=== PATIENT | female | born 1985 | race Caucasian/White ===

== ENCOUNTER 2018-09-02 07:03 | Inpatient (IN) | payer OTHER ==
[~2018-09-02] VITALS: Ht 167.6 cm; Wt 79.4 kg
[2018-09-02 07:22] LABS: Source, Urine Clean Catch
[2018-09-02 07:27] LABS: Bilirubin, Urine Neg (Neg); Blood, Urine 5+ (Neg); Glucose Qualitative, Urine Neg (Neg); Ketones, Urine 1+ (Neg); Leukocyte Esterase, Urine 3+ (Neg); Nitrite, Urine Pos (Neg); Protein, Urine 3+ (Neg); Urobilinogen, Urine NORM (Normal)
[2018-09-02 07:42] LABS: BASOPHILS ABSOLUTE AUTO 0.11 K/mm3 (0.00-0.23); BASOPHILS PERCENT AUTO 1 % (0-2); EOSINOPHILS ABSOLUTE AUTO 0.06 K/mm3 (0.00-0.68); EOSINOPHILS PERCENT AUTO 0 % (0-6); Hematocrit 43.8 % (33.0-51.0); Hemoglobin 15.2 g/dL (11.5-16.0); IMMATURE GRAN ABSOLUTE AUTO 0.06 K/mm3 (0.00-0.10); IMMATURE GRAN PERCENT AUTO 0 % (0-1); LYMPHOCYTES ABSOLUTE AUTO 1.23 K/mm3 (0.84-5.20); LYMPHOCYTES PERCENT AUTO 9 % (21-46); MONOCYTES ABSOLUTE AUTO 0.66 K/mm3 (0.16-1.47); MONOCYTES PERCENT AUTO 5 % (4-13); Mean Corpuscular HGB 33.9 pg (26.0-34.0); Mean Corpuscular HGB Conc 34.7 g/dL (31.5-36.5); Mean Corpuscular Volume 98 fL (80-100); Mean Platelet Volume 11.2 fL (9.1-12.4); NEUTROPHILS ABSOLUTE AUTO 11.44 K/mm3 (1.96-9.15); NEUTROPHILS PERCENT AUTO 84 % (41-73); Platelet Count 120 K/mm3 (150-400); RDW Coefficient Variation 12.1 % (11.7-14.2); RDW Standard Deviation 43.6 fL (35.1-46.3); Red Blood Cell Count 4.49 M/mm3 (3.80-5.20); White Blood Cell Count 13.56 K/mm3 (4.00-11.30)
[2018-09-02 07:50] LABS: Appearance, Urine Hazy (Clear); Color, Urine Yellow (P-Yellow)
[2018-09-02 07:51] LABS: White Blood Cells, Urine TNTC /hpf (0-5)
[2018-09-02 07:52] LABS: Bacteria Many /hpf; Squamous Epithelial Cells Rare /hpf (Few)
[2018-09-02 07:59] LABS: Alanine Aminotransfer (ALT/SGP 53 U/L (12-78); Albumin, Blood 3.6 g/dL (3.4-5.0); Albumin/Globulin Ratio 0.9 (0.8-1.8); Alk Phos 136 U/L (50-136); Anion Gap 11 mmol/L (6-16); Aspartate Aminotrans (AST/SGOT 73 U/L (12-37); Bilirubin, Total 1.4 mg/dL (0.1-1.0); Blood Urea Nitrogen 12 mg/dL (8-24); Bun/Creatinine Ratio 21.4 (12.0-20.0); CO2, Blood 23 mmol/L (21-32); Chloride, Blood 98 mmol/L (98-108); Creatinine, Blood 0.56 mg/dL (0.40-1.00); Globulin, Blood 4.2 g/dL (2.2-4.0); Glomerular Filtration Rate >60 (60-); Glucose, Blood 130 mg/dL (70-99); Sodium, Blood 132 mmol/L (136-145); Total Protein, Blood 7.8 g/dL (6.4-8.2)
--- NOTE | 2018-09-02 09:59 | NUR ---
NOTIFIED DR. OHARA PT'S BP 166/103 AND PT ASYMPTOMATIC. NO NEW ORDERS AT THIS TIME.
--- NOTE | 2018-09-02 15:29 | NUR ---
NOTIFIED DR. OHARA PT'S BP 177/[address] OHARA SAID TO ORDER ONE TIME DOSE OF 10MG IV HYDRALAZINE AND CONTINUE TO MONITOR. NO OTHER NEW ORDERS AT THIS TIME.
--- NOTE | 2018-09-02 17:38 | NUR ---
SHIFT SUMMARY- PT AXO X4. PT C/O HEADACHE AND HAS MILD FEVER OF 99.3. THIS PM. MEDS GIVEN PER EMAR. PT'S BP ELEVATED THIS SHIFT. DR. OHARA NOTIFIED. DR. OHARA ORDERED ONE TIME DOSE OF 10MG IV HYDRALAZINE. DR. OHARA SAID SHE WANTS TO SEE IF PT'S BP IMPROVES AFTER SHE HAS RECIEVED THE 2 BAGS OF LR PER EMAR. SECOND BAG OF LR CURRENTLY INFUSING. MEDS GIVEN PER EMAR. BP 159/104 THIS PM. HR ELEVATED THIS SHIFT. 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 PT DENIES SOB. RESP E/U ON RA. DENIES N/V. INDEPENDENT IN THE ROOM. NO OTHER SIGNIFICANT CHANGES THIS SHIFT.
--- NOTE | 2018-09-03 04:24 | NUR ---
SHIFT SUMMARY PT A/O. AMBULATES IN THE ROOM INDEPENDENTLY. CONTINUES TO HAVE FREQUENCY WITH VOIDING. DENIES ANY PAIN THIS EVENING. SLEPT OFF AND ON THROUGHOUT THE NIGHT. PT COMPLETED SECOND BAG OF LR. BLOOD PRESSURE SLIGHTLY IMPROVED BUT CONTINUES TO BE ELEVATED. HR SLIGHTLY TACHYCARDIC WELL IN THE LOW 110'S. MD AWARE. NO ACUTE CHANGES THIS SHIFT. WILL CONTINUE TO MONITOR AND REPORT TO DAY RN.
[2018-09-03 05:05] LABS: BASOPHILS ABSOLUTE AUTO 0.06 K/mm3 (0.00-0.23); BASOPHILS PERCENT AUTO 1 % (0-2); EOSINOPHILS ABSOLUTE AUTO 0.09 K/mm3 (0.00-0.68); EOSINOPHILS PERCENT AUTO 1 % (0-6); Hematocrit 40.1 % (33.0-51.0); Hemoglobin 13.6 g/dL (11.5-16.0); IMMATURE GRAN ABSOLUTE AUTO 0.03 K/mm3 (0.00-0.10); IMMATURE GRAN PERCENT AUTO 0 % (0-1); LYMPHOCYTES ABSOLUTE AUTO 1.04 K/mm3 (0.84-5.20); LYMPHOCYTES PERCENT AUTO 11 % (21-46); MONOCYTES PERCENT AUTO 6 % (4-13); Mean Corpuscular HGB 33.8 pg (26.0-34.0); Mean Corpuscular HGB Conc 33.9 g/dL (31.5-36.5); Mean Corpuscular Volume 100 fL (80-100); Mean Platelet Volume 11.4 fL (9.1-12.4); NEUTROPHILS PERCENT AUTO 82 % (41-73); Platelet Count 92 K/mm3 (150-400); RDW Coefficient Variation 11.9 % (11.7-14.2); RDW Standard Deviation 43.8 fL (35.1-46.3); Red Blood Cell Count 4.02 M/mm3 (3.80-5.20); White Blood Cell Count 9.82 K/mm3 (4.00-11.30)
[2018-09-03 05:53] LABS: Anion Gap 8 mmol/L (6-16); Blood Urea Nitrogen 5 mg/dL (8-24); Bun/Creatinine Ratio 9.8 (12.0-20.0); CO2, Blood 22 mmol/L (21-32); Calcium, Blood 8.6 mg/dL (8.5-10.1); Chloride, Blood 105 mmol/L (98-108); Creatinine, Blood 0.51 mg/dL (0.40-1.00); Glomerular Filtration Rate >60 (60-); Glucose, Blood 123 mg/dL (70-99); Potassium, Blood 3.7 mmol/L (3.5-5.5); Sodium, Blood 135 mmol/L (136-145)
[2018-09-03] MEDS ORDERED: LISI20 PO (09:50)
[2018-09-03] MEDS ORDERED: LEVO750 PO (09:50)
--- NOTE | 2018-09-03 11:30 | NUR ---
DISCHARGE NOTE PT DISCHARGED TO HOME. PT LEFT ROOM VIA STEADY GAIT AT 1000 WITH RN ESCORT. 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 PT AGREES. IV DC'D AND BELONGINGS RETURNED. ALL QUESTIONS ANSWERED.
== END 2018-09-03 10:45 | disposition home or self-care (01) | DRG 872 ==
LOC: ER 07:03 → MEDS 07:04 → ENPENDDIS 09-03 09:05 → MEDS 09-03 10:45
PROVIDERS: Emergency Medicine; ADMIT Internal Medicine
DX: A41.9 Sepsis, unspecified organism (principal); N10 Acute pyelonephritis; I10 Essential (primary) hypertension; F17.200 Nicotine dependence, unspecified, uncomplicated
CPT/HCPCS: 36415; 80048; 80053; 81001; 81025; 83605; 85025; 87040; 87077; 87086; 87186; 96361; 96365; 99284-25; A9270; G0378; J0360; J0696; J7030; J7120

== ENCOUNTER 2019-02-08 14:19 | Inpatient (IN) | payer SELFPAY ==
[~2019-02-08] VITALS: Ht 160 cm; Wt 79.0 kg
[~2019-02-08 14:19] MED LIST: LEVO750 PO; LISI20 PO
[2019-02-08 14:40] LABS: Calcium, Ionized (POC) 1.06 mmol/L (1.10-1.46); Chloride (POC) 98 mmol/L (98-108); Creatinine (POC) 2.7 mg/dL (0.6-1.0); Glucose (ISTAT POC) 50 mg/dL (70-99); Hemoglobin (POC) 16.3 g/dL (12.0-16.0); Potassium (POC) 5.6 mmol/L (3.5-5.5); Sodium (POC) 132 mmol/L (135-148); Total CO2 (POC) 15 mmol/L (21-32)
[2019-02-08 14:54] LABS: Hematocrit 42.5 % (33.0-51.0); Hemoglobin 13.1 g/dL (11.5-16.0); Mean Corpuscular HGB 34.6 pg (26.0-34.0); Mean Corpuscular HGB Conc 30.8 g/dL (31.5-36.5); Mean Corpuscular Volume 112 fL (80-100); Mean Platelet Volume 12.3 fL (9.1-12.4); NRBC ABSOLUTE 0.48 K/mm3 (0.00-0.02); NRBC Auto 6.1 /100 WBC (0.0-0.2); Platelet Count 57 K/mm3 (150-400); RDW Coefficient Variation 13.9 % (11.7-14.2); RDW Standard Deviation 55.7 fL (35.1-46.3); Red Blood Cell Count 3.79 M/mm3 (3.80-5.20); White Blood Cell Count 7.89 K/mm3 (4.00-11.30)
[2019-02-08 15:12] LABS: Alanine Aminotransfer (ALT/SGP 139 U/L (12-78); Albumin, Blood 2.2 g/dL (3.4-5.0); Albumin/Globulin Ratio 0.8 (0.8-1.8); Alk Phos 126 U/L (50-136); Anion Gap 32 mmol/L (6-16); Aspartate Aminotrans (AST/SGOT 930 U/L (12-37); Bilirubin, Total 1.9 mg/dL (0.1-1.0); Blood Urea Nitrogen 22 mg/dL (8-24); Bun/Creatinine Ratio 9.4 (12.0-20.0); CO2, Blood 18 mmol/L (21-32); Calcium, Blood 9.9 mg/dL (8.5-10.1); Chloride, Blood 91 mmol/L (98-108); Creatinine, Blood 2.34 mg/dL (0.40-1.00); Ethanol (Alcohol), Blood, Med <3 mg/dL; Globulin, Blood 2.8 g/dL (2.2-4.0); Glomerular Filtration Rate 26 (60-); Glucose, Blood 52 mg/dL (70-99); Magnesium, Blood 2.3 mg/dL (1.6-2.4); Potassium, Blood 5.3 mmol/L (3.5-5.5); Sodium, Blood 141 mmol/L (136-145)
[2019-02-08 15:15] LABS: Troponin I 0.057 ng/mL (0.000-0.040)
[2019-02-08 15:24] LABS: PCO2 Arterial 71 mmHg (35-45); pH Blood Arterial 6.92 (7.35-7.45)
[2019-02-08 15:25] LABS: PO2 Arterial 41 mmHg (80-100)
[2019-02-08 15:51] LABS: BAND PERCENT MAN 15 % (0-8); BASOPHILS ABSOLUTE MAN 0.07 K/mm3 (0.00-0.23); BASOPHILS PERCENT MAN 1 % (0-2); EOSINOPHILS PERCENT MAN 0 % (0-6); LYMPHOCYTES ABSOLUTE MAN 4.02 K/mm3 (0.84-5.20); LYMPHOCYTES PERCENT MAN 51 % (21-46); METAMYELOCYTE ABSOLUTE MAN 0.55 K/mm3 (0.00-0.00); METAMYELOCYTE PERCENT MAN 7 % (0-0); MONOCYTES ABSOLUTE MAN 0.31 K/mm3 (0.16-1.47); MONOCYTES PERCENT MAN 4 % (4-13); MYELOCYTE ABSOLUTE MAN 0.23 K/mm3 (0.00-0.00); MYELOCYTE PERCENT MAN 3 % (0-0); NEUTROPHILS ABSOLUTE MAN 2.68 K/mm3 (1.96-9.15); SEG NEUTROPHILS PERCENT MAN 19 % (41-73); TOTAL CELLS COUNTED 100
--- NOTE | 2019-02-08 16:42 | NUR ---
REsponded to ED staff request to be present for the arrival of this pt. Greeted family when they arrived and provided updates. SO, Derek, was quite tearful. Pt and SO have a ten year-old dtr who is also present. Multiple family memebers arrived, including pt's mom. Derek informs me that his mother just last month. Family appreciaitve of prayer and emotional support. I will remain available.
--- NOTE | 2019-02-08 17:25 | NUR ---
ADMISSION NOTE- PT ADMITTED TO ICU FROM ER ON [facility]. UNRESPONSIVE. PUPILS LARGE, REACTIVE. DECEREBRATE POSTURING BOTH ARMS IN RESPONSE TO PAIN. DOES HAVE SOME HEAD BOBBING MOVVMENT. NO RESPONSE TO PAIN EITHER LEG. ORALLY INTUBATED, TUBE SECURE. TOLERATING VENT. LUNGS CLEAR T/O. UNABLE TO OBTAIN SATURATION. SKIN COLD, MOTTLED CHEST, KNEES. TEMP 92.5 CHAVEZ TEMP. OGT CLAMPED. NOSRMAL SINUS 80'S. UNABLE TO OBTAIN BP-DOPPLE BP 70/D LEFT ARM. LEVOPHED GTT AT 20 MCG/MIN, EPINEPHRINE AT 20 MCG/MIN, VASOPRESSIN GTT AT .04 UNITS/MIN AND BICARB GTT AT 50 CC/HR. DR. STRICKLAND AT BEDSIDE, PLACING ARTERIAL LINE. CHAVEZ IN PLACE-NO UO.
--- NOTE | 2019-02-08 17:39 | NUR ---
RIGHT FEMORAL ARTERIAL SITE PLACED BY DR. STRICKLAND WITH GOOD WAVEFORM. SBP 120'S. EPINEPHRINE TO 18 MCG/MIN. T[employer] TEMP NOW 33.6. SATURATION PROBE FOREHEAD WITH READING OF 91%
[2019-02-08 17:53] LABS: PCO2 Arterial 29.8 mmHg (35-45); PO2 Arterial 249 mmHg (80-100)
--- NOTE | 2019-02-08 18:45 | NUR ---
RIJ CENTRAL LINE PLACED BY DR. STRICKLAND, SITE OOZING. PORTABLE CHEST DONE-OKAY TO USE. BEDSIDE ECHO DONE. TITRATING EPI GTT DOWN. TWO AMPS BICARB GIVEN FOR ABG PER DR. STRICKLAND. BLOOD SUGAR 243. FAMILY HERE-UPDATED. BLADDER SCAN DONE-MINIMAL URINE. OGT WITH BLOODY BROWN DRAINAGE.
--- NOTE | 2019-02-08 18:49 | NUR ---
Echocardiogram completed.
[2019-02-08 19:09] LABS: Hematocrit 35.8 % (33.0-51.0); Hemoglobin 10.9 g/dL (11.5-16.0)
--- NOTE | 2019-02-08 19:35 | NUR ---
Present throughout late afternoon with this family. Provided calm presence, gentle dormitory counselor, and prayer. Numerous family arriving. They are tearful, but appropriate. [employer] will remain available.
--- NOTE | 2019-02-08 19:35 | NUR ---
NOW WITH BLOODY RECTAL DRAINAGE-BATH, LINEN CHANGE DONE. RECTAL TUBE PLACED BY DEMARIO ALLEN. HAS SOME TWITCHING MOVEMENTS. DR. STRICKLAND HERE-NEURO ASSESSED. DR. STRICKLAND HAD DISCUSSION WITH FAMILY, IMPLEMENTATION LEAD HERE. FAMILY TEARFUL, IN ROOM TO SEE PT. CRITICAL LAB VALUES GIVEN TO DR. STRICKLAND. STILL WOULD LIKE BLOOD TRANSFUSED. PT'S DAD CONSENTED FOR BLOOD TRANSFUSION. REPORT TO IFEANYI ALLEN
--- NOTE | 2019-02-08 20:07 | NUR ---
[place] of Care: Assumed care of patient at 1900hr, report received from day shift ALEJANDRO Santa. Patient intubated, vent to AC-26/450/5/100%, O2- 100%. No sedation at this time, patient is unresponsive. Doll eyes noted, pupils dilated to 6mm and fixed. Dr. Rashid made aware. Art-line to rt femoral with dressing tegaderm CHG in place with gauze (bleeding on day shift), dressing now c/d/i. Central line to rt IJ patent and intact, infusing Epinephrine, Levophed, Vasopressin, and sodium-bicarb (see-flow sheet). Dressing to rt IJ patent and intact. Epinephrine gtt at 6mcg/min, Levophed at 20mcg/min, systolic BP 80's-90's, MAP- 50's. At shift change received orders per Dr. Clifford to not titrate vasopressing medications up any further, and to maintain current rate. Repeat Lactic acid received at shift change-23.4. Dr. Clifford made aware of and received orders to increase Bicarb gtt from 50ml/hr, to 100ml/hr. Also received orders for 2 units PRBC's, 2 units FFP, and 1 unit Cryo, awaiting unit ready slips from lab at this time. Ambrose cath in place, but no urine output noted. Bladder scan showed only 30ml in bladder. Discussed urine output status with Dr. Dasilva, instructed patient would be getting more volume with blood products and hold additional fluids at this time. ET tube advanced by RT Willis by 1cm, now 23cm at lip, 7.5 tube. Will continue to monitor.
[2019-02-08 20:50] LABS: PCO2 Arterial 27.8 mmHg (35-45); PO2 Arterial 197 mmHg (80-100)
--- NOTE | 2019-02-08 21:37 | NUR ---
Update: Since assumption of care, patient's BP continued to decline, systolic 60's, MAP's 40'S. Instructed by Dr. Dasilva to not start chest compressions until patient show's asystole/or has no pulse. Also instructed to wait until blood products have finished to draw repeat lactic acid. Patient then had x3 episodes of bradycardia, HR decreased to 40's-50's, carodid pulse still palpable. Dr. Dasilva called to room with each episode of bradycardia, he has also been in/out of patient's room throughout shift thus far. During bradycardia, again instructed to not start chest compressions. HR then increased back to 70's-80's, BP remains low. Instructed to continue current treatment r/t vasopressors, fluids. X1 unit Cryo given, then received orders to discontinue previously ordered FFP and RBC's. Several family members to room and at bedside at this time. De-fibb pads and back board remain in place.
--- NOTE | 2019-02-08 22:43 | NUR ---
Update: Dr. Serrano left unit at this time. Instructed by Dr. Clifford to not perform CPR and/or call code blue if indicated, send text message to his phone when patient . Maintaining current treatment of vasopressors and fluids. BP remains low, systolic 50's, MAP 30's, HR- 60's. Family remains at bedside. Will continue to monitor.
--- NOTE | 2019-02-09 00:01 | NUR ---
Comfort Care: Patient's family called this nurse to room. Patient's family asked if the ventilator, and medications are supporting her life at this time, "keeping her alive". This nurse informed family (including next of kin- mother/father), that the ventilator and medications are life supporting measures, and that she may not maintain a HR or breathing for very long if these measures were removed. Family then decided that they would like to stop all life supporting measures. Call placed to Dr. Dasilva and order received for comfort measures. Family informed. Call placed to RT Dhillon, updated with plan to extubate and stop medications.
== END 2019-02-09 00:32 | DRG 296 ==
LOC: ER 14:19 → ICUW 16:11
PROVIDERS: Emergency Medicine; Internal Medicine Critical Care Medicine; ADMIT Internal Medicine
PROC: 3E033XZ Introduction of Vasopressor into Peripheral Vein, Percutaneous Approach (ICD-10-PCS; principal; 2019-02-08)
PROC: 02HV33Z Insertion of Infusion Device into Superior Vena Cava, Percutaneous Approach (ICD-10-PCS; 2019-02-08)
PROC: 5A1935Z Respiratory Ventilation, Less than 24 Consecutive Hours (ICD-10-PCS; 2019-02-08)
DX: I46.9 Cardiac arrest, cause unspecified (principal); K72.00 Acute and subacute hepatic failure without coma; J96.02 Acute respiratory failure with hypercapnia; Z66 Do not resuscitate; J96.01 Acute respiratory failure with hypoxia; N17.9 Acute kidney failure, unspecified; E87.2 Acidosis; Z51.5 Encounter for palliative care; F17.210 Nicotine dependence, cigarettes, uncomplicated; D69.6 Thrombocytopenia, unspecified; R34 Anuria and oliguria; R57.0 Cardiogenic shock; E16.2 Hypoglycemia, unspecified; T68.XXXA Hypothermia, initial encounter
CPT/HCPCS: 31500; 31720; 36415; 36430; 36556; 36600; 36620; 51702; 70450; 71045; 71260; 80047; 80053; 82803; 82947; 83605; 83735; 84484; 85014; 85018; 85025; 86850; 86900; 86901; 86923; 87040; 92950; 93005; 93010; 93306; 94002; 96365-59; 96366-59; 96368; 96375-59; 96376-59; 99291-25; 99292; C1751; G0480; J0171; J0696; J7030; J7040; J7060; J7070; P9012; Q9967